=== PATIENT | female | born 1935 | race Caucasian/White ===

== ENCOUNTER 2016-10-16 19:51 | Emergency (ER) | payer BC ==
[2016-10-16 13:39] LABS: BASOPHILS 0.1 %; BASOPHILS ABSOLUTE 0.01 10/3/uL (0.0-0.16); EOSINOPHILS 0 %; HEMATOCRIT 45.6 % (36.0-48.0); HEMOGLOBIN 15.7 g/dL (12.0-16.0); IMMATURE GRANULOCYTES 0.1 %; IMMATURE GRANULOCYTES ABSOLUTE 0.01 10/3/uL (0.0-0.11); LYMPHOCYTES 12.1 %; LYMPHOCYTES ABSOLUTE 1.16 10/3/uL (0.67-4.30); MANUAL DIFF NO %; MEAN CORPUS HGB CONC 34.4 g/dL (32.0-36.0); MEAN CORPUSCULAR HEMOGLOB 34.8 pg (26.0-34.0); MEAN CORPUSCULAR VOLUME 101.1 fL (80-100); MEAN PLATELET VOLUME 9.6 fL (9.2-13.0); MONOCYTES 8.3 %; NEUTROPHILS 79.4 %; NEUTROPHILS ABSOLUTE 7.63 10/3/uL (2.02-8.40); PLATELET COUNT 220 10/3/uL (150-400); RED CELL COUNT 4.51 10/6/uL (4.0-5.6); WHITE BLOOD CELLS 9.6 10/3/uL (4.5-10.5)
[2016-10-16 13:55] LABS: A/G RATIO 1.1 (0.7-1.9); ALBUMIN 4.1 G/DL (3.5-5.0); ALKALINE PHOSPHATASE 107 U/L (45-117); BUN (BLOOD UREA NITROGEN) 15 MG/DL (6-23); CALCIUM, SERUM 9.5 MG/DL (8.5-10.4); CHLORIDE, SERUM 103 MMOL/L (96-112); CO2 (CARBON DIOXIDE) 27 MMOL/L (24-34); CREATININE 1.14 MG/DL (0.55-1.02); GFR AFRICAN AMERICAN 53 ML/MIN (>=60); GFR NON AFRICAN AMERICAN 46 ML/MIN (>=60); POTASSIUM, SERUM 4.1 MMOL/L (3.5-5.3); SGOT(AST) 19 U/L (5-40); SGPT(ALT) 19 U/L (5-65); SODIUM, SERUM 140 MMOL/L (135-148); TOTAL BILIRUBIN 0.9 MG/DL (0-1.2); TOTAL PROTEIN 7.8 G/DL (6.0-8.5); TROPONIN I <0.02 NG/ML (<0.05)
[2016-10-16 13:56] LABS: GLOBULIN 3.7 G/DL (2.5-4.1); GLUCOSE, SERUM 99 MG/DL (60-99)
[2016-10-16 21:20] LABS: ASCORBIC ACID (UR NOT ORDER) 20 (NEG); BILIRUBIN, URINE NEGATIVE (NEG); ER URINALYSIS TAT 0 Hrs 19 Mins; KETONE, URINE TRACE MG/DL (NEG); LEUKOCYTE ESTERASE(NOT OR LARGE (NEG); NITRITE (URINE) NEG (NEG); WBC (NOT ORDERED) (RFLEX) 2 (0-5)
[2017-03-11] MEDS ORDERED: ASAB PO (19:11)
[2017-03-11] MEDS ORDERED: BUSPAR30 MG PO (19:12)
[2017-03-11] MEDS ORDERED: CARTIA XT180 MG/24 PO (19:13)
[2017-03-11] MEDS ORDERED: PRILO PO (19:14)
[2017-03-11] MEDS ORDERED: CELEXA20 PO (19:14)
[2017-03-11] MEDS ORDERED: ARICEPT10 PO (19:15)
[2017-03-11] MEDS ORDERED: NEUR100 PO (19:16)
[2017-03-11] MEDS ORDERED: NAMENDA10 MG PO (19:17)
[2017-03-11] MEDS ORDERED: VITAMIN B-121000 MC1 SL (19:17)
[2017-03-11] MEDS ORDERED: VITAMIN D1000 UNI1 PO (19:18)
[2017-03-11] MEDS ORDERED: ACET500CAP PO (19:19)
[2017-03-11] MEDS ORDERED: RELA5 PO (19:19)
[2017-03-11] MEDS ORDERED: ULTRAM50 PO (19:20)
[2017-03-21] MEDS ORDERED: T PO (09:35)
[2017-03-21] MEDS ORDERED: C2 PO (09:39)
== END 2016-10-16 22:22 | disposition home or self-care (01) ==
LOC: ER 19:51
PROVIDERS: Emergency Medicine
DX: F03.90 Unspecified dementia, unspecified severity, without behavioral disturbance, psychotic disturbance, mood disturbance, and anxiety (principal); I10 Essential (primary) hypertension; K21.9 Gastro-esophageal reflux disease without esophagitis
CPT/HCPCS: 70450; 71020; 80053; 81001; 84484; 85025; 87040; 87086; 93005; 99285

== ENCOUNTER 2016-12-11 17:07 | Emergency (ER) | payer BC ==
[2016-12-11 17:29] LABS: BASOPHILS 0.1 %; BASOPHILS ABSOLUTE 0.01 10/3/uL (0.0-0.16); EOSINOPHILS 0.4 %; EOSINOPHILS ABSOLUTE 0.03 10/3/uL (0.0-0.53); ER CBC TAT 0 Hrs 03 Mins; HEMOGLOBIN 13.8 g/dL (12.0-16.0); IMMATURE GRANULOCYTES 0.1 %; IMMATURE GRANULOCYTES ABSOLUTE 0.01 10/3/uL (0.0-0.11); LYMPHOCYTES 19.9 %; LYMPHOCYTES ABSOLUTE 1.42 10/3/uL (0.67-4.30); MEAN CORPUS HGB CONC 34.5 g/dL (32.0-36.0); MEAN CORPUSCULAR HEMOGLOB 34.5 pg (26.0-34.0); MEAN PLATELET VOLUME 9.2 fL (9.2-13.0); MONOCYTES 7.7 %; MONOCYTES ABSOLUTE 0.55 10/3/uL (0.21-1.20); NEUTROPHILS 71.8 %; PLATELET COUNT 197 10/3/uL (150-400); RBC DISTRIBUTION WIDTH 12.4 % (12.0-16.0); WHITE BLOOD CELLS 7.1 10/3/uL (4.5-10.5)
[2016-12-11 17:30] LABS: MANUAL DIFF NO %
[2016-12-11 17:38] LABS: PARTIAL THROMBO TIME 27.9 SEC (22.5-37.2); PROTIME (NOT ORD) 13.5 SEC (12.0-14.5)
[2016-12-11 17:44] LABS: A/G RATIO 1.1 (0.7-1.9); ALBUMIN 3.5 G/DL (3.5-5.0); CALCIUM, SERUM 8.9 MG/DL (8.5-10.4); CHLORIDE, SERUM 105 MMOL/L (96-112); CO2 (CARBON DIOXIDE) 29 MMOL/L (24-34); CREATININE 1.01 MG/DL (0.55-1.02); GFR AFRICAN AMERICAN 61 ML/MIN (>=60); GFR NON AFRICAN AMERICAN 53 ML/MIN (>=60); GLOBULIN 3.2 G/DL (2.5-4.1); GLUCOSE, SERUM 116 MG/DL (60-99); POTASSIUM, SERUM 3.7 MMOL/L (3.5-5.3); SGOT(AST) 18 U/L (5-40); SGPT(ALT) 17 U/L (5-65); SODIUM, SERUM 142 MMOL/L (135-148); TOTAL PROTEIN 6.7 G/DL (6.0-8.5)
[2016-12-11 17:47] LABS: ALKALINE PHOSPHATASE 130 U/L (45-117); BUN (BLOOD UREA NITROGEN) 20 MG/DL (6-23); TOTAL BILIRUBIN 0.4 MG/DL (0-1.2)
[2016-12-11 19:35] LABS: CPK 50 U/L (0-200)
[2016-12-11 19:49] LABS: ASCORBIC ACID (UR NOT ORDER) 40 (NEG); BILIRUBIN, URINE NEGATIVE (NEG); ER URINALYSIS TAT 0 Hrs 13 Mins; KETONE, URINE TRACE MG/DL (NEG); LEUKOCYTE ESTERASE(NOT OR LARGE (NEG); NITRITE (URINE) NEG (NEG); WBC (NOT ORDERED) (RFLEX) 9 (0-5)
[2017-03-11] MEDS ORDERED: ASAB PO (19:11)
[2017-03-11] MEDS ORDERED: BUSPAR30 MG PO (19:12)
[2017-03-11] MEDS ORDERED: CARTIA XT180 MG/24 PO (19:13)
[2017-03-11] MEDS ORDERED: PRILO PO (19:14)
[2017-03-11] MEDS ORDERED: CELEXA20 PO (19:14)
[2017-03-11] MEDS ORDERED: ARICEPT10 PO (19:15)
[2017-03-11] MEDS ORDERED: NEUR100 PO (19:16)
[2017-03-11] MEDS ORDERED: VITAMIN B-121000 MC1 SL (19:17)
[2017-03-11] MEDS ORDERED: NAMENDA10 MG PO (19:17)
[2017-03-11] MEDS ORDERED: VITAMIN D1000 UNI1 PO (19:18)
[2017-03-11] MEDS ORDERED: RELA5 PO (19:19)
[2017-03-11] MEDS ORDERED: ACET500CAP PO (19:19)
[2017-03-11] MEDS ORDERED: ULTRAM50 PO (19:20)
[2017-03-21] MEDS ORDERED: T PO (09:35)
[2017-03-21] MEDS ORDERED: C2 PO (09:39)
== END 2016-12-11 23:13 | disposition home or self-care (01) ==
LOC: ER 17:07
PROVIDERS: Emergency Medicine; Nurse Practitioner Acute Care
DX: K62.5 Hemorrhage of anus and rectum (principal); I10 Essential (primary) hypertension; F03.90 Unspecified dementia, unspecified severity, without behavioral disturbance, psychotic disturbance, mood disturbance, and anxiety; K21.9 Gastro-esophageal reflux disease without esophagitis
CPT/HCPCS: 36415; 74176; 80053; 81001; 82550; 83605; 85025; 85610; 85730; 86850; 86900; 86901; 87086; 99284